=== PATIENT | male | born 1995 | race Caucasian/White ===

== ENCOUNTER 2019-08-27 14:15 | Emergency (ER) | payer OTHER, SELFPAY ==
[2019-08-27 14:25] VITALS: BP 143/83; PULSE 113; RESP 20; TEMP 36.7; O2SAT 97
--- NOTE | 2019-08-27 14:53 | ED.GENADULT ---
HPI - General Adult General Chief complaint: Unspecified Stated complaint: food bolus Time Seen by Provider: 08/27/19 14:29 Source: patient Mode of arrival: ambulatory Limitations: no limitations History of Present Illness HPI narrative: A 24 y/o male pt presents to the ED, with c/o a piece of steak that is stuck in his esophagus x 30 min prior to arrival. He reports chewing the piece of steak up, but is unsure how big the piece was. Pt denies any similar episodes to this in the past. He notes difficulty swallowing his saliva, and CP, but denies SOB, fever, or N/V/D. Pt denies any significant PMHx and notes taking Zyrtec daily for seasonal allergies. complaint: food bolus Onset (ago): minute(s) (30 prior to arrival) Location: neck (throat) Associated symptoms: other (difficulty swallowing saliva) Related Data Home Medications Medication Instructions Recorded Confirmed cetirizine [Zyrtec] 10 mg PO DAILY 08/27/19 Allergies Allergy/AdvReac Type Severity Reaction Status Date / Time No Known Allergies Allergy Unverified 07/10/14 15:04 Review of Systems Review of Systems: All systems reviewed & are unremarkable except as noted in HPI and below Constitutional: Constitutional: Denies fever(s) Cardiovascular: Cardiovascular: Reports chest pain and Denies dyspnea Gastrointestinal: Gastrointestinal: Reports dysphagia (food bolus, unable to swallow saliva), Denies diarrhea, Denies nausea and Denies vomiting PMFSH Past Medical History Medical History (Updated 08/27/19 @ 15:52 by Arash Atkinson MD) Asthma History of gastroesophageal reflux (GERD) Kidney stones Seasonal allergies Surgical History Surgical History (Updated 08/27/19 @ 15:51 by Bebo WoodallJobulous) History of renal stent Hx of adenoidectomy Family History Family History (Updated 06/04/16 @ 13:45 by DOCTOR UNKNOWN) Grandparent Depression Family history of rheumatoid arthritis Family history of allergic disorder Family history of ulcerative colitis Family history of type 2 diabetes mellitus Father Family history of gastrointestinal disorder Mother Family history of hypothyroidism Family history of kidney stones Family history of type 2 diabetes mellitus Social History Social History Smoking status: Never smoker Alcohol intake: never Exam Const: General: healthy appearing, no acute distress and well developed Nutritional Appearance: well nourished Orientation/consciousness: patient oriented x3 (alert) and Other orientation findings (Alert) Limitations: no limitations HENMT: Head: normocephalic and atraumatic Ears: external ears normal General nose exam: No nasal discharge present and no epistaxis Face and sinus: face symmetric Mouth: Yes lip normal, Yes tongue normal and Yes moist mucous membranes Throat: other (No exudate, no erythema) Other: unable to swallow saliva Eyes: Conjunctivae: conjunctivae normal Sclera: sclerae normal EOM: EOMs intact bilaterally Neck: Neck: full ROM, no lymphadenopathy and supple Thyroid: thyroid normal Chest: Chest palpation & inspection: no tenderness Resp: Effort & Inspection: normal respiratory effort Auscultation: clear to auscultation bilaterally, no rales, no rhonchi, no wheezes and other (breath sounds equal) Cardio: Rate: regular rate Rhythm: regular rhythm Heart sounds: no gallops and no murmurs GI: Inspection: non-distended GI Palp: No abdominal tenderness and Yes Soft to palpation Auscultation: other (bowel sounds present) : General: Yes no CVA tenderness Back/Spine/Pelvis: Back: no CVA tenderness Thoracic/Lumbar Spine: thoracic and lumbar spine normal to inspection Skin: General skin exam: normal color and no rashes or lesions noted Neuro: General: patient oriented x3 (alert), moves all extremities and no focal motor deficits Cranial nerves: Yes facial symmetry Speech: normal speech Motor ex
[2019-08-27] MEDS: GLUCAGON FOR INJ 1 MG VIAL IV PUSH (15:35)
[2019-08-27] MEDS: NITROGLYCERIN SL 0.4 MG TABLET SUBLINGUAL (15:35)
[2019-08-27] MEDS: LACTATED RINGERS 1,000 ML 999 ML IV CONT (15:35)
--- NOTE | 2019-08-27 15:52 | PC.NURSE ---
States the food bolus passed. Is able to swallow without difficulty.
== END 2019-08-27 16:15 | disposition home or self-care (01) ==
PROVIDERS: Emergency Provider Emergency Medicine; PCP Family Medicine
DX: T18.128A Food in esophagus causing other injury, initial encounter (principal); J45.909 Unspecified asthma, uncomplicated; K21.9 Gastro-esophageal reflux disease without esophagitis; Z87.440 Personal history of urinary (tract) infections
CPT/HCPCS: 96361; 96374; 99284; A9270; J1610; J7120

== ENCOUNTER 2019-12-15 14:26 | Outpatient (CLI) | payer OTHER, SELFPAY ==
--- NOTE | ~2019-12-15 | XR_ITS ---
XR abdomen/kub 1V DATE: 12/15/2019 16:07 INDICATION: Right flank pain, left flank pain TECHNIQUE: AP projection, 2 views COMPARISON: None FINDINGS: There is an approximately 6 x 10 mm calcified density overlying the expected position of th e proximal right ureter at the L2 level. Consider noncontrast CT abdomen pelvis examination to determ ine if this is a proximal ureteral calcified stone. No other apparent calcifications overlying the urinary tracts. The psoas shadows are intact. No evidence of bowel obstruction. Included skeletal structures are unremarkable. IMPRESSION: 6 x 10 mm calcification overlying proximal right ureter; consider noncontrast CT abdomen pelvis examination Reviewed, dictated and finalized at [facility]. Reviewed, dictated and finalized at location [facility]. IMPRESSION: 6 x 10 mm calcification overlying proximal right ureter; consider n oncontrast CT abdomen pelvis examination
[2019-12-15 16:01] LABS: Basophils Percent Auto 0.4 % (0.2-1.2); Eosinophils Absolute Auto 0.2 K/mm3 (0-0.3); Eosinophils Percent Auto 2.9 % (0-4.4); Hematocrit 51.5 % (42.0-52.0); Immature Granulocyte Absolute 0.02 K/mm3 (0.00-0.031); Immature Granulocyte Percent A 0.3 % (0-0.5); Lymphocytes Absolute Auto 1.31 K/mm3 (0.9-3.2); Lymphocytes Percent Auto 19.2 % (18.3-44.2); Mean Corpuscular Hemoglobin 29.8 pg (26-34); Mean Corpuscular Volume 90.2 fl (80-100); Mean Platelet Volume 12.3 fl (7.4-10.4); Monocytes Absolute Auto 0.4 K/mm3 (0.1-0.6); Monocytes Percent Auto 5.3 % (2.6-8.5); Neutrophils Absolute Auto 4.9 K/mm3 (1.3-6.7); Neutrophils Percent Auto 71.9 % (45.5-73.1); Platelet Count Result 249 k/mm3 (150-375); Red Blood Count 5.71 M/mm3 (4.6-6.20); Red Cell Distribution Width 12.3 % (11.5-14.5); White Blood Count 6.8 K/mm3 (4.5-10.0)
[2019-12-15 16:18] LABS: Alanine Aminotransferase 51 U/L (4-50); Albumin Level 4.8 g/dL (3.5-5.1); Alkaline Phosphatase 41 U/L (38-126); Aspartate Amino Transferase 30 U/L (17-59); Bilirubin,Total 0.5 mg/dL (0.2-1.3); Blood Urea Nitrogen 13 mg/dL (9-20); Calcium 9.7 mg/dL (8.4-10.2); Carbon Dioxide 28 mmol/L (22-30); Chloride 101 mmol/L (98-107); Estimated Glomerular Filt Rate > 60; Glucose 123 mg/dL (75-110); Potassium 4.1 mmol/L (3.4-5.0); Sodium 139 mmol/L (137-145)
[2019-12-15 16:43] LABS: Prostate Specific Antigen 0.4 ng/mL (< OR = 4.0)
[2019-12-15 17:01] LABS: Hepatitis B Surface Antigen Negative (Negative)
[2019-12-15 17:07] LABS: HAV RESULT Negative (Negative); Hepatitis B Core IgM Result Negative (Negative)
[2019-12-15 17:19] LABS: Hepatitis C Virus Antibody Negative (Negative)
[2019-12-18 12:29] LABS: HSV 1 IgM Screen Negative (Negative); HSV 2 IgM Screen Negative (Negative)
[2019-12-18 13:34] LABS: Rapid Plasma Reagin Non-Reactive (NonReactive)
[2019-12-18 15:53] LABS: Testosterone Free 55.7 pg/mL (35.0-155.0); Testosterone Total 387 ng/dL (250-1100)
== END 2019-12-15 14:27 | disposition home or self-care (01) ==
PROVIDERS: PCP Family Medicine; Visit Provider Family Medicine
DX: R10.9 Unspecified abdominal pain (principal); Z72.51 High risk heterosexual behavior; F52.32 Male orgasmic disorder
CPT/HCPCS: 36415; 74018; 80053; 80074; 84153; 84402; 84403; 85025; 86592; 86695; 86696; 87491; 87591

== ENCOUNTER 2019-12-29 13:42 | Outpatient (CLI) | payer OTHER, SELFPAY ==
--- NOTE | ~2019-12-29 | CT_ITS ---
EXAMINATION: CT abdomen pelvis wo con DATE: 12/29/2019 14:00 INDICATION: Right flank pain TECHNIQUE: Computed tomography (CT) of the abdomen and pelvis was performed without intravenous contr ast. The dose-length product was 707.89 mGy-cm. Automated exposure control and iterative reconstructi on technique were employed. COMPARISON: CT dated 07/06/2014 FINDINGS: There are at least 3 small right UPJ stones with moderate hydronephrosis. Largest stone lawrence sures approximately 3 mm. Lung bases unremarkable. No significant pleural or pericardial effusion. Heart size normal. The liver , spleen, pancreas, adrenal glands and left kidney are unremarkable. Nonobstructive bowel gas pattern . No acute osseous abnormality. No free air or free fluid. No lymphadenopathy. No significant vascula r abnormality. No evidence for hernia. IMPRESSION: 1. Small right UPJ stones with moderate hydronephrosis. Reviewed, dictated and finalized at location [facility].
== END 2019-12-29 13:43 | disposition home or self-care (01) ==
LOC: ANHIMG 13:42
PROVIDERS: PCP Family Medicine; Visit Provider Family Medicine
DX: N20.1 Calculus of ureter (principal)
CPT/HCPCS: 74176

== ENCOUNTER 2020-01-02 11:32 | Outpatient (CLI) | payer OTHER, SELFPAY ==
[2020-01-02 12:22] LABS: Alanine Aminotransferase 38 U/L (4-50); Albumin Level 4.6 g/dL (3.5-5.1); Alkaline Phosphatase 42 U/L (38-126); Aspartate Amino Transferase 25 U/L (17-59); Bilirubin,Total 0.5 mg/dL (0.2-1.3); Blood Urea Nitrogen 18 mg/dL (9-20); Calcium 9.2 mg/dL (8.4-10.2); Carbon Dioxide 28 mmol/L (22-30); Chloride 103 mmol/L (98-107); Estimated Glomerular Filt Rate > 60; Glucose 89 mg/dL (75-110); Potassium 4.3 mmol/L (3.4-5.0); Sodium 139 mmol/L (137-145)
[2020-01-02 13:23] LABS: Hemoglobin A1C 5.2 % (<5.7)
== END 2020-01-02 11:33 | disposition home or self-care (01) ==
PROVIDERS: PCP Family Medicine; Visit Provider Family Medicine
DX: R74.8 Abnormal levels of other serum enzymes (principal); R73.9 Hyperglycemia, unspecified
CPT/HCPCS: 36415; 80053; 83036

== ENCOUNTER 2020-01-03 14:43 | Outpatient (CLI) | payer OTHER, SELFPAY ==
--- NOTE | ~2020-01-03 | XR_ITS ---
XR abdomen/kub 1V 01/03/2020 15:04 Indication: Right sided abdomen pain. History of kidney stones. Procedure: KUB Comparison: 12/15/2019 Findings: Persistent right UPJ stones without significant change. Bowel gas pattern nonobstructive. N o significant bone or joint abnormality. Lung bases unremarkable. Impression: 1: Stable appearance to right UPJ stone as compared with prior study. Reviewed, dictated and finalized at location [facility]. Impression: 1: Stable appearance to right UPJ stone as compared with prior study.
== END 2020-01-03 14:44 | disposition home or self-care (01) ==
PROVIDERS: PCP Family Medicine; Visit Provider Urology
DX: N20.0 Calculus of kidney (principal)
CPT/HCPCS: 74018

== ENCOUNTER 2020-01-11 00:44 | Outpatient (CLI) | payer OTHER, SELFPAY ==
[2020-01-11 20:09] LABS: SARS-CoV-2 RNA PCR Negative
== END 2020-01-11 00:45 | disposition home or self-care (01) ==
LOC: ANHCOVIDDT 00:44
PROVIDERS: PCP Family Medicine; Visit Provider Urology
DX: Z01.812 Encounter for preprocedural laboratory examination (principal); Z11.59 Encounter for screening for other viral diseases
CPT/HCPCS: 87635; C9803; U0003

== ENCOUNTER 2020-01-11 07:05 | Outpatient (CLI) | payer OTHER, SELFPAY ==
[2020-01-11 07:53] LABS: Prothrombin Time 12.4 Seconds (11.1-14.7)
[2020-01-11 07:54] LABS: Partial Thromboplastin Time 26.6 SECONDS (22.3-36.8)
== END 2020-01-11 07:06 | disposition home or self-care (01) ==
PROVIDERS: PCP Family Medicine; Visit Provider Urology
DX: N20.0 Calculus of kidney (principal)
CPT/HCPCS: 36415; 85610; 85730

== ENCOUNTER 2020-01-12 02:00 | Day surgery (SDC) | payer OTHER, SELFPAY ==
[2020-01-10 14:37] VITALS: BMI 30.4
--- NOTE | 2020-01-11 17:14 | WPDANESEPP ---
Anes - Eval Pre Procedure Procedure: Operation Date: 01/12/20 07:30 Proposed Procedures p Right Extracorporeal Shock Wave Lithotripsy - Ace Temple MD Date/Time: 01/11/20 17:14 Pre Op Diagnosis: Right UPJ Stone Patient Data Age: 24 Gender: M Height: 5 ft 8 in Weight: 90.72 kg Allergies Allergy/AdvReac Type Severity Reaction Status Date / Time No Known Allergies Allergy Verified 01/10/20 14:38 Home Medications Medication Instructions Recorded Confirmed Type cetirizine [Zyrtec] 10 mg PO DAILY 08/27/19 01/10/20 History tamsulosin 0.4 mg PO DAILY 01/10/20 01/10/20 History Patient hx anesthesia problems: none Family hx anesthesia problems: none PMFSH Past Medical History Medical History Asthma Food impaction of esophagus History of gastroesophageal reflux (GERD) Kidney stones Seasonal allergies Surgical History Surgical History History of renal stent Hx of adenoidectomy Family History Family History Grandparent Depression Family history of rheumatoid arthritis Family history of allergic disorder Family history of ulcerative colitis Family history of type 2 diabetes mellitus Father Family history of gastrointestinal disorder Mother Family history of hypothyroidism Family history of kidney stones Family history of type 2 diabetes mellitus Social History Social History Smoking status: Never smoker Alcohol intake: never Spiritual care concerns: No Exam Day of Procedure 01/11/20 17:14 Patient weight: normal Airway: Mallampati scale Neurological: alert and oriented
[2020-01-12] VITALS (8 sets, daily range): BP systolic 101–135; BP diastolic 64–84; PULSE 55–88; RESP 12–14; TEMP 36.1–36.3; O2SAT 93–100
--- NOTE | ~2020-01-12 | XR_ITS ---
EXAMINATION: XR abdomen/kub 1V DATE: 01/12/2020 06:22 INDICATION: Right ureteral stone. TECHNIQUE: A supine view of the abdomen on 2 radiographs was obtained. COMPARISON: CT abdomen and pelvis 12/29/2019 FINDINGS: There are no dilated loops of bowel. There is a phlebolith right pelvis. There is a [address] one in proximal right ureter. IMPRESSION: 1. 6 mm stone in proximal right ureter. Reviewed, dictated and finalized at location [facility].
--- NOTE | 2020-01-12 06:58 | WPDANESEPPF ---
Anes - Initial Pre Proc Eval Procedure: Operation Date: 01/12/20 07:30 Proposed Procedures p Right Extracorporeal Shock Wave Lithotripsy - Ace Temple MD Date/Time: 01/12/20 06:58 Surgeon: Ace Temple MD Pre Op Diagnosis: Right UPJ Stone Patient Data Age: 24 Gender: M Height: 5 ft 8 in Weight: 90.72 kg Allergies Allergy/AdvReac Type Severity Reaction Status Date / Time No Known Allergies Allergy Verified 01/10/20 14:38 Home Medications Medication Instructions Recorded Confirmed Type cetirizine [Zyrtec] 10 mg PO DAILY 08/27/19 01/10/20 History tamsulosin 0.4 mg PO DAILY 01/10/20 01/10/20 History Patient hx anesthesia problems: none Family hx anesthesia problems: none PMFSH Past Medical History Medical History Asthma Food impaction of esophagus History of gastroesophageal reflux (GERD) Kidney stones Seasonal allergies Surgical History Surgical History History of renal stent Hx of adenoidectomy Family History Family History Grandparent Depression Family history of rheumatoid arthritis Family history of allergic disorder Family history of ulcerative colitis Family history of type 2 diabetes mellitus Father Family history of gastrointestinal disorder Mother Family history of hypothyroidism Family history of kidney stones Family history of type 2 diabetes mellitus Social History Social History Smoking status: Never smoker Alcohol intake: never Spiritual care concerns: No Anes - Eval Final PreProcedure Day of Procedure 01/12/20 06:58 Patient weight: overweight Heart: regular rate and rhythm Lungs: clear to auscultation Airway: Mallampati scale class II Neurological: alert and oriented Last oral intake: >/= 8 hours ASA classification: II Emergent: no Anesthetic plan: proceed Anesthesia type and monitoring: general LMA and standard monitoring Informed Consent: The patient's anesthetic plan and its attendant risks and benefits were discussed with the patient/family/POA. Questions were solicited and answers provided to the satisfaction of the patient/family/POA.
[2020-01-12] MEDS: LACTATED RINGERS 1,000 ML 30 ML IV CONT (07:12)
--- NOTE | 2020-01-12 07:15 | WPDHPUPDATE1 ---
History and Physical Update Update Date/Time: 01/12/20 07:15 History and Physical has been reviewed, including an updated exam of the patient. There are NO changes in the patient's condition. Risks, benefits, and alternatives have been discussed and questions answered. Patient agrees to proceed with procedure.
[2020-01-12] MEDS: ceFAZolin 2 GM/D5W 50 ML 2 GM/50 ML BAG IVPB (07:22)
--- NOTE | 2020-01-12 08:07 | PM.PROC ---
Procedure Note - Detailed Date of procedure: 01/12/20 Pre-op diagnosis: Right UPJ Stone Post-op diagnosis: same Procedure performed: ESWL of right proximal ureteral calculus approximately 9 mm Description of procedure: patient was taken to the operative suite and correctly identified. Once anesthesia was obtained the stone was localized in both planes. Three thousand shocks given the stone. Appears to be fairly hard stone. . Preoperative reading reveals that it appears to be 2-3 stones present in 1 location. Patient is taken recovery room stable condition and given the standard post litho instructions. He develops any problems he will call so we can deal with appropriately. Anesthesia: GLMA Surgeon: Aec Temple MD Drains: No Packing: No Pathology: none sent Complications: No immediate complications Condition: stable Disposition: PACU
== END 2020-01-12 10:00 | disposition home or self-care (01) ==
PROVIDERS: PCP Family Medicine; Visit Provider Urology
PROC: (CPT 50590; principal; 2020-01-12 07:30)
DX: N20.1 Calculus of ureter (principal)
CPT/HCPCS: 50590; 74018; J0690; J1100; J2250; J2405; J2704; J3010; J7120

== ENCOUNTER 2020-01-23 11:15 | Outpatient (CLI) | payer OTHER, SELFPAY ==
--- NOTE | ~2020-01-23 | XR_ITS ---
EXAMINATION: XR abdomen/kub 1V INDICATION: Calculus of kidney TECHNIQUE: Supine views of the abdomen were obtained on 2 radiographs. COMPARISON: 01/12/2020 FINDINGS: The previously described proximal right ureteral stone is no longer identified. No stones o r stone fragments are identified along the expected course of the right ureter or within the urinary bladder. A small stable right pelvic phlebolith is noted. The bowel gas pattern is normal. IMPRESSION: 1. Interval treatment of the previously described proximal right ureteral stone without identifiable urolithiasis. Reviewed, dictated and finalized at location B.
== END 2020-01-23 11:16 | disposition home or self-care (01) ==
LOC: ANHIMG 11:21
PROVIDERS: PCP Family Medicine; Visit Provider Urology
DX: N20.0 Calculus of kidney (principal)
CPT/HCPCS: 74018

== ENCOUNTER 2020-03-06 10:59 | Outpatient (CLI) | payer OTHER, SELFPAY ==
[2020-03-06 11:25] LABS: Add Urine Microscopic? NO; Appearance Urine Clear (Clear); Bilirubin Urine Negative (Negative); Blood Urine Negative (Negative); Color Urine Yellow (Yellow); Glucose Urine UA Negative (Negative); Ketones Urine Negative (Negative); Leukocyte Esterase Ur Negative LEU/UL (Negative); Nitrate Urine Negative (Negative); Protein Urine Negative (Negative); Specific Grav Ur 1.021 (1.001-1.035); Urobilinogen Urine Negative mg/dL (<2.0)
[2020-03-06 11:35] LABS: Albumin Level 4.7 g/dL (3.5-5.1); Anion Gap 8 mmol/L (8-16); Blood Urea Nitrogen 10 mg/dL (9-20); Calcium 9.6 mg/dL (8.4-10.2); Carbon Dioxide 28 mmol/L (22-30); Chloride 103 mmol/L (98-107); Estimated Glomerular Filt Rate > 60; Glucose 99 mg/dL (75-110); Phosphorus 3.3 mg/dL (2.5-4.5); Potassium 4.2 mmol/L (3.4-5.0); Sodium 139 mmol/L (137-145); Uric Acid 6.9 mg/dL (3.5-8.5)
[2020-03-06 12:06] LABS: Parathyroid Intact 39.8 pg/mL (7.5-53.5)
== END 2020-03-06 11:00 | disposition home or self-care (01) ==
PROVIDERS: PCP Family Medicine; Visit Provider Internal Medicine Nephrology
DX: N20.0 Calculus of kidney (principal)
CPT/HCPCS: 36415; 80069; 81003; 83970; 84550

== ENCOUNTER 2020-03-13 01:44 | Outpatient (CLI) | payer OTHER, SELFPAY ==
[2020-03-13 18:39] LABS: SARS-CoV-2 RNA PCR Negative
== END 2020-03-13 01:45 | disposition home or self-care (01) ==
LOC: ANHCOVIDDT 01:45
PROVIDERS: PCP Family Medicine; Visit Provider Internal Medicine Gastroenterology
DX: Z01.812 Encounter for preprocedural laboratory examination (principal); Z20.828 Contact with and (suspected) exposure to other viral communicable diseases
CPT/HCPCS: 87635; C9803; U0003

== ENCOUNTER 2020-03-15 01:01 | Day surgery (SDC) | payer OTHER, SELFPAY ==
[2020-03-07 13:15] VITALS: BMI 30.4
[2020-03-15 12:27] VITALS: BP 134/49; PULSE 70; RESP 16; TEMP 36.7; O2SAT 100; BMI 30.6
[2020-03-15] MEDS: LACTATED RINGERS 1,000 ML 150 ML IV CONT (12:41)
--- NOTE | 2020-03-15 12:48 | P.PNAN_ITS ---
Anes - Initial Pre Proc Eval Procedure: Operation Date: 03/15/20 13:30 Proposed Procedures p Esophagogastroduodenoscopy - Moustapha Jasmine MD Date/Time: 03/15/20 12:48 Surgeon: Moustapha Jasmine MD Pre Op Diagnosis: Dysphagia Patient Data Age: 24 Gender: M Height: 5 ft 8 in Weight: 91.4 kg Last Vital Signs Temp 98.1 F 03/15/20 12:27 Pulse 70 03/15/20 12:27 Resp 16 03/15/20 12:27 BP 134/49 L 03/15/20 12:27 Pulse Ox 100 03/15/20 12:27 Allergies Allergy/AdvReac Type Severity Reaction Status Date / Time No Known Allergies Allergy Verified 03/15/20 12:26 Home Medications Medication Instructions Recorded Confirmed Type Zyrtec 10 mg PO DAILY PRN 08/27/19 03/15/20 History Patient hx anesthesia problems: none Family hx anesthesia problems: none [facility] Social History Social History Smoking status: Never smoker Alcohol intake: current Alcohol use details: OCC. NOT WEEKLY Substance use: never Substance use type: does not use Living arrangements: with family Spiritual care concerns: No Anes - Eval Final PreProcedure Day of Procedure 03/15/20 12:48 Patient weight: overweight Heart: regular rate and rhythm Lungs: clear to auscultation Airway: Mallampati scale class II Neurological: alert and oriented Last oral intake: >/= 8 hours ASA classification: II Emergent: no Anesthetic plan: proceed Anesthesia type and monitoring: general GIVS and standard monitoring Informed Consent: The patient's anesthetic plan and its attendant risks and benefits were discussed with the patient/family/POA. Questions were solicited and answers provided to the satisfaction of the patient/family/POA.
--- NOTE | 2020-03-15 13:24 | PM.HPGS ---
History of Present Illness History of Present Illness Consent: Risks, benefits, and alternatives have been discussed and questions answered. Patient agrees to proceed with procedure. Chief complaint: Dysphagia Narrative: Stephane Cortez is a 24 year old male with dysphagia mostly to solids. Review of Systems Constitutional: Constitutional: Denies headache(s) and Denies weakness Eyes: Eyes: Denies blurry vision ENT: Reports Normal hearing present, Denies headache(s) and Denies neck pain Cardiovascular: Cardiovascular: Denies chest pain and Denies dyspnea Respiratory: Respiratory: Denies dyspnea Gastrointestinal: Gastrointestinal: Reports no additional gastrointestinal complaints Genitourinary: Genitourinary: Denies dysuria Musculoskeletal: Musculoskeletal: Denies neck pain Integumentary/Breasts: Skin/Breast: Denies dry skin Neurologic: Reports Normal hearing present, Denies headache(s) and Denies weakness Psychiatric: Psychiatric: Denies anxiety Endocrine: Endocrine: Denies change in body appearance Hematologic/Lymphatic: Hematologic/Lymphatic: Denies easy bleeding Allergic/Immunologic: Allergic/Immunologic: Denies urticaria PMF Social History Social History Smoking status: Never smoker Alcohol intake: current Alcohol use details: OCC. NOT WEEKLY Substance use: never Substance use type: does not use Living arrangements: with family Spiritual care concerns: No Meds Home Medications and Allergies Home Medications Medication Instructions Recorded Confirmed Type Zyrtec 10 mg PO DAILY PRN 08/27/19 03/15/20 History Allergies Allergy/AdvReac Type Severity Reaction Status Date / Time No Known Allergies Allergy Verified 03/15/20 12:26 Vital Signs Vital Signs - 24 hr 03/15/20 12:27 Temperature 98.1 F Pulse Rate 70 Respiratory Rate 16 Blood Pressure 134/49 L Pulse Oximetry 100 Exam Const: General: comfortable and no acute distress HENMT: General nose exam: Normal nares present Eyes: General: appearance normal, both eyes and all related structures Neck: Neck: no JVD Resp: Auscultation: clear to auscultation bilaterally Cardio: Rate: regular rate Rhythm: regular rhythm GI: Inspection: non-distended GI Palp: Yes Soft to palpation Skin: General skin exam: normal color Neuro: General: gait normal Speech: normal speech Extrem: General: normal to inspection Psych: Mental Status: mental status grossly normal Assessment and Plan Assessment and plan (1) Dysphagia: Code(s): R13.10 - Dysphagia, unspecified Status: Acute Assessment and Plan: egd with bx
[2020-03-15 13:27] VITALS: BP 99/63; PULSE 68; RESP 20; O2SAT 100
[2020-03-15 13:37] VITALS: BP 107/64; PULSE 61; RESP 21; O2SAT 95
[2020-03-15 13:47] VITALS: BP 102/52; PULSE 69; RESP 17; O2SAT 100
== END 2020-03-15 13:56 | disposition home or self-care (01) ==
PROVIDERS: PCP Family Medicine; Visit Provider Internal Medicine Gastroenterology
PROC: 0DJ08ZZ Inspection of Upper Intestinal Tract, Via Natural or Artificial Opening Endoscopic (ICD-10-PCS; CPT 43235; principal; 2020-03-15 13:30)
DX: R13.10 Dysphagia, unspecified (principal); K20.9 Esophagitis, unspecified; K29.50 Unspecified chronic gastritis without bleeding
CPT/HCPCS: 43239; 88305; J7120

== ENCOUNTER 2020-05-15 12:10 | Outpatient (CLI) | payer OTHER, SELFPAY ==
[2020-05-15 12:35] LABS: Add Urine Microscopic? YES; Appearance Urine Clear (Clear); Bacteria Urine Trace /hpf; Bilirubin Urine Negative (Negative); Blood Urine Negative (Negative); Color Urine Yellow (Yellow); Glucose Urine UA Negative (Negative); Ketones Urine Negative (Negative); Leukocyte Esterase Ur Negative LEU/UL (NEGATIVE); Mucus Urine Few /lpf; Nitrate Urine Negative (Negative); Protein Urine 1+ mg/dL (Negative); RBC Urine 0-2 /hpf (0-2); Specific Grav Ur 1.025 (1.001-1.035); WBC Urine 0-3 /hpf (0-3)
[2020-05-15 12:42] LABS: Albumin Level 4.8 g/dL (3.5-5.1); Anion Gap 9 mmol/L (8-16); Blood Urea Nitrogen 12 mg/dL (9-20); Calcium 9.1 mg/dL (8.4-10.2); Carbon Dioxide 29 mmol/L (22-30); Chloride 104 mmol/L (98-107); Estimated Glomerular Filt Rate > 60; Glucose 96 mg/dL (75-110); Phosphorus 3.3 mg/dL (2.5-4.5); Potassium 4.3 mmol/L (3.4-5.0); Sodium 142 mmol/L (137-145); Uric Acid 6.6 mg/dL (3.5-8.5)
== END 2020-05-15 12:11 | disposition home or self-care (01) ==
PROVIDERS: PCP Family Medicine; Visit Provider Internal Medicine Nephrology
DX: N20.0 Calculus of kidney (principal)
CPT/HCPCS: 36415; 80069; 81001; 84550

== ENCOUNTER 2020-08-23 17:31 | Outpatient (CLI) | payer OTHER, SELFPAY | END 2020-08-23 17:32 | disposition home or self-care (01) | LOC: ANHCOVIDVC 17:32 | PROVIDERS: PCP Family Medicine | DX: Z23 Encounter for immunization (principal) | CPT/HCPCS: 0001A; 91300 ==

== ENCOUNTER 2020-09-13 17:13 | Outpatient (CLI) | payer OTHER, SELFPAY | END 2020-09-13 17:14 | disposition home or self-care (01) | LOC: ANHCOVIDVC 17:13 | PROVIDERS: PCP Family Medicine | DX: Z23 Encounter for immunization (principal) | CPT/HCPCS: 0002A; 91300 ==

== ENCOUNTER → 2020-10-08 03:24 | Outpatient (CLI) | payer OTHER, SELFPAY ==
[2020-10-08 20:31] LABS: SARS-CoV-2 RNA PCR Negative
== END ==
PROVIDERS: PCP Family Medicine; Visit Provider Internal Medicine Gastroenterology
DX: Z01.812 Encounter for preprocedural laboratory examination (principal); Z20.822 Contact with and (suspected) exposure to COVID-19
CPT/HCPCS: C9803; U0003; U0005

== ENCOUNTER 2020-10-11 01:54 | Day surgery (SDC) | payer OTHER, SELFPAY ==
[2020-10-02 12:28] VITALS: BMI 31.8
[2020-10-11 09:12] VITALS: BP 125/82; PULSE 79; RESP 16; TEMP 36.8; O2SAT 96; BMI 32.5
[2020-10-11] MEDS: LACTATED RINGERS 1,000 ML 150 ML IV CONT (09:28)
--- NOTE | 2020-10-11 09:59 | WPDANESEPPF ---
Anes - Initial Pre Proc Eval Procedure: Operation Date: 10/11/20 10:15 Proposed Procedures p Esophagogastroduodenoscopy - Moustapha Jasmine MD Date/Time: 10/11/20 09:59 Surgeon: Moustapha Jasmine MD Pre Op Diagnosis: esophogitis Patient Data Age: 25 Gender: M Height: 5 ft 8 in Weight: 97.2 kg Last Vital Signs Temp 98.2 F 10/11/20 09:12 Pulse 79 10/11/20 09:12 Resp 16 10/11/20 09:12 BP 125/82 10/11/20 09:12 Pulse Ox 96 10/11/20 09:12 Allergies Allergy/AdvReac Type Severity Reaction Status Date / Time No Known Allergies Allergy Verified 10/11/20 09:11 Home Medications Medication Instructions Recorded Confirmed Type Zyrtec 10 mg PO DAILY PRN 08/27/19 10/11/20 History omeprazole 20 mg capsule,delayed See Rx Instructions .ROUTE 09/02/20 10/11/20 Rx release .COMPLEX #30 cap Patient hx anesthesia problems: none Family hx anesthesia problems: none PMFSH Past Medical History Medical History Asthma Dysphagia Eosinophilic esophagitis Food impaction of esophagus History of gastroesophageal reflux (GERD) Kidney stones Seasonal allergies Surgical History Surgical History History of renal stent Hx of adenoidectomy Family History Family History Grandparent Depression Family history of rheumatoid arthritis Family history of allergic disorder Family history of ulcerative colitis Family history of type 2 diabetes mellitus Father Family history of gastrointestinal disorder Mother Family history of hypothyroidism Family history of kidney stones Family history of type 2 diabetes mellitus Social History Social History Smoking status: Never smoker Alcohol intake: never Substance use: never Substance use type: does not use Living arrangements: with family Gender identity (if verbalized by the patient): Male Spiritual care concerns: No Anes - Eval Final PreProcedure Day of Procedure 10/11/20 09:59 Patient weight: obese Heart: regular rate and rhythm Lungs: clear to auscultation Airway: Mallampati scale class II Neurological: alert and oriented Last oral intake: >/= 8 hours ASA classification: II Emergent: no Anesthetic plan: proceed Anesthesia type and monitoring: general GIVS and standard monitoring Informed Consent: The patient's anesthetic plan and its attendant risks and benefits were discussed with the patient/family/POA. Questions were solicited and answers provided to the satisfaction of the patient/family/POA.
--- NOTE | 2020-10-11 10:01 | PM.HPGS ---
History of Present Illness History of Present Illness Consent: Risks, benefits, and alternatives have been discussed and questions answered. Patient agrees to proceed with procedure. Chief complaint: esophogitis Narrative: Stephane Cortez is a 25 year old male with EoE, dysphagia now better with ppi. Here to reassess Review of Systems Constitutional: Constitutional: Denies headache(s) and Denies weakness Eyes: Eyes: Denies blurry vision ENT: Reports Normal hearing present, Denies headache(s) and Denies neck pain Cardiovascular: Cardiovascular: Denies chest pain and Denies dyspnea Respiratory: Respiratory: Denies dyspnea Gastrointestinal: Gastrointestinal: Reports no additional gastrointestinal complaints Genitourinary: Genitourinary: Denies dysuria Musculoskeletal: Musculoskeletal: Denies neck pain Integumentary/Breasts: Skin/Breast: Denies dry skin Neurologic: Reports Normal hearing present, Denies headache(s) and Denies weakness Psychiatric: Psychiatric: Denies anxiety Endocrine: Endocrine: Denies change in body appearance Hematologic/Lymphatic: Hematologic/Lymphatic: Denies easy bleeding Allergic/Immunologic: Allergic/Immunologic: Denies urticaria PMFSH Past Medical History Medical History Asthma Dysphagia Eosinophilic esophagitis Food impaction of esophagus History of gastroesophageal reflux (GERD) Kidney stones Seasonal allergies Surgical History Surgical History History of renal stent Hx of adenoidectomy Family History Family History Grandparent Depression Family history of rheumatoid arthritis Family history of allergic disorder Family history of ulcerative colitis Family history of type 2 diabetes mellitus Father Family history of gastrointestinal disorder Mother Family history of hypothyroidism Family history of kidney stones Family history of type 2 diabetes mellitus Social History Social History Smoking status: Never smoker Alcohol intake: never Substance use: never Substance use type: does not use Living arrangements: with family Gender identity (if verbalized by the patient): Male Spiritual care concerns: No Meds Home Medications and Allergies Home Medications Medication Instructions Recorded Confirmed Type Zyrtec 10 mg PO DAILY PRN 08/27/19 10/11/20 History omeprazole 20 mg capsule,delayed See Rx Instructions .ROUTE 09/02/20 10/11/20 Rx release .COMPLEX #30 cap Allergies Allergy/AdvReac Type Severity Reaction Status Date / Time No Known Allergies Allergy Verified 10/11/20 09:11 Vital Signs Vital Signs - 24 hr 10/11/20 09:12 Temperature 98.2 F Pulse Rate 79 Respiratory Rate 16 Blood Pressure 125/82 Pulse Oximetry 96 Exam Const: General: comfortable and no acute distress HENMT: General nose exam: Normal nares present Eyes: General: appearance normal, both eyes and all related structures Neck: Neck: no JVD Resp: Auscultation: clear to auscultation bilaterally Cardio: Rate: regular rate Rhythm: regular rhythm GI: Inspection: non-distended GI Palp: Yes Soft to palpation Skin: General skin exam: normal color Neuro: General: gait normal Speech: normal speech Extrem: General: normal to inspection Psych: Mental Status: mental status grossly normal Assessment and Plan Assessment and plan (1) Eosinophilic esophagitis: Code(s): K20.0 - Eosinophilic esophagitis Status: Acute Assessment and Plan: egd with bx to reassess, already on ppi
[2020-10-11 10:20] VITALS: BP 107/70; PULSE 85; RESP 16; O2SAT 97
[2020-10-11 10:30] VITALS: BP 105/69; PULSE 81; RESP 16; O2SAT 99
[2020-10-11 10:40] VITALS: BP 115/57; PULSE 77; RESP 16; O2SAT 99
== END 2020-10-11 11:06 | disposition home or self-care (01) ==
PROVIDERS: PCP Family Medicine; Visit Provider Internal Medicine Gastroenterology
PROC: 0DJ08ZZ Inspection of Upper Intestinal Tract, Via Natural or Artificial Opening Endoscopic (ICD-10-PCS; CPT 43235; principal; 2020-10-11 10:15)
DX: K20.0 Eosinophilic esophagitis (principal); K21.9 Gastro-esophageal reflux disease without esophagitis; J45.909 Unspecified asthma, uncomplicated; R13.10 Dysphagia, unspecified
CPT/HCPCS: 43239; 88305; J2704; J7120

== ENCOUNTER 2020-11-29 11:55 | Outpatient (CLI) | payer OTHER, SELFPAY ==
[2020-11-29 12:38] LABS: Add Urine Microscopic? YES; Appearance Urine Clear (Clear); Bacteria Urine Trace /hpf; Bilirubin Urine Negative (Negative); Blood Urine Negative (Negative); Color Urine Yellow (Yellow); Glucose Urine UA Negative (Negative); Ketones Urine Negative (Negative); Leukocyte Esterase Ur Negative LEU/UL (Negative); Mucus Urine Rare /lpf; Nitrate Urine Negative (Negative); Protein Urine 2+ mg/dL (Negative); RBC Urine 0-2 /hpf (0-2); Specific Grav Ur 1.026 (1.001-1.035); WBC Urine 0-3 /hpf
[2020-11-29 12:44] LABS: Albumin Level 4.8 g/dL (3.5-5.1); Anion Gap 8 mmol/L (8-16); Blood Urea Nitrogen 15 mg/dL (9-20); Calcium 9.7 mg/dL (8.4-10.2); Carbon Dioxide 31 mmol/L (22-30); Chloride 104 mmol/L (98-107); Estimated Glomerular Filt Rate > 60; Glucose 90 mg/dL (75-110); Phosphorus 2.8 mg/dL (2.5-4.5); Potassium 4.6 mmol/L (3.4-5.0); Sodium 143 mmol/L (137-145); Uric Acid 7.5 mg/dL (3.5-8.5)
[2020-11-29 14:33] LABS: Creatinine Urine 243.9 mg/dL; Total Protein Urine Random 8 mg/dL; Ur Ttl Prot Creatinine Ratio 0.03 mg/mg (0-0.20)
== END 2020-11-29 11:56 | disposition home or self-care (01) ==
PROVIDERS: PCP Family Medicine; Visit Provider Internal Medicine Nephrology
DX: N20.0 Calculus of kidney (principal)
CPT/HCPCS: 36415; 80069; 81001; 82570; 84156; 84550

== ENCOUNTER 2021-08-15 14:02 | Outpatient (CLI) | payer OTHER, SELFPAY ==
--- NOTE | ~2021-08-15 | XR_ITS ---
XR abdomen/kub 1V 08/15/2021 14:36 INDICATION: Renal stone TECHNIQUE: KUB COMPARISON: 12/15/2019 FINDINGS: Bowel gas pattern is normal. There is no evidence of free air, mass, organomegaly, ascites or obstruction. No abnormal calculi are seen. The bones appear intact. IMPRESSION: 1: No acute abdominal abnormality identified. Reviewed, dictated and finalized at location B. [employer]
[2021-08-15 15:03] LABS: Add Urine Microscopic? YES; Appearance Urine Clear (Clear); Bilirubin Urine Negative (Negative); Blood Urine Negative (Negative); Color Urine Yellow (Yellow); Glucose Urine UA Negative (Negative); Ketones Urine Negative (Negative); Leukocyte Esterase Ur Negative LEU/UL (NEGATIVE); Mucus Urine Rare /lpf; Nitrate Urine Negative (Negative); Protein Urine Negative (Negative); RBC Urine 0-2 /hpf (0-2); WBC Urine 0-3 /hpf (0-3)
[2021-08-15 15:56] LABS: Albumin Level 4.7 g/dL (3.5-5.1); Anion Gap 8 mmol/L (8-16); Blood Urea Nitrogen 10 mg/dL (9-20); Calcium 9.6 mg/dL (8.4-10.2); Carbon Dioxide 27 mmol/L (22-30); Chloride 103 mmol/L (98-107); Estimated Glomerular Filt Rate > 60; Glucose 106 mg/dL (65-110); Phosphorus 3.4 mg/dL (2.5-4.5); Potassium 4.5 mmol/L (3.4-5.0); Sodium 138 mmol/L (137-145); Uric Acid 7.4 mg/dL (3.5-8.5)
== END 2021-08-15 14:03 | disposition home or self-care (01) ==
PROVIDERS: PCP Family Medicine; Visit Provider Internal Medicine Nephrology
DX: N20.0 Calculus of kidney (principal)
CPT/HCPCS: 36415; 74018; 80069; 81001; 84550

== ENCOUNTER 2022-03-10 10:19 | Outpatient (CLI) | payer OTHER, SELFPAY ==
[2022-03-10 11:05] LABS: Mucus Urine Rare /lpf; Squamous Epithelial Cell Urine Rare /hpf (Few); WBC Urine 0-3 /hpf (0-3)
[2022-03-10 11:11] LABS: Albumin Level 4.4 g/dL (3.5-5.1); Anion Gap 12 mmol/L (8-16); Blood Urea Nitrogen 12 mg/dL (9-20); Calcium 9.1 mg/dL (8.4-10.2); Carbon Dioxide 25 mmol/L (22-30); Chloride 103 mmol/L (98-107); Estimated Glomerular Filt Rate > 60; Glucose 104 mg/dL (65-110); Potassium 3.9 mmol/L (3.4-5.0); Sodium 140 mmol/L (137-145); Uric Acid 7.7 mg/dL (3.5-8.5)
[2022-03-10 11:13] LABS: Appearance Urine Clear (Clear); Bilirubin Urine 1+ (Negative); Color Urine Yellow (Yellow); Glucose Urine UA Negative (Negative); Ketones Urine Negative (Negative); Leukocyte Esterase Ur Negative LEU/UL (NEGATIVE); Nitrate Urine Negative (Negative); Protein Urine Negative (Negative); Specific Grav Ur >= 1.030 (1.001-1.035); Urobilinogen Urine 0.2 mg/dL (<2.0)
[2022-03-10 11:19] LABS: Add Urine Microscopic? YES; Blood Urine Trace-Intact (Negative)
== END 2022-03-10 10:20 | disposition home or self-care (01) ==
LOC: ANHLAB 10:22
PROVIDERS: PCP Family Medicine; Visit Provider Internal Medicine Nephrology
DX: N20.0 Calculus of kidney (principal)
CPT/HCPCS: 36415; 80069; 81001; 84550

== ENCOUNTER 2022-10-21 12:35 | Outpatient (CLI) | payer OTHER, SELFPAY ==
--- NOTE | ~2022-10-21 | XR_ITS ---
EXAMINATION: XR abdomen/kub 1V DATE: 10/21/2022 12:59 INDICATION: Calculus of kidney. TECHNIQUE: A supine view of the abdomen on 2 radiographs was obtained. COMPARISON: CT abdomen and pelvis 12/29/2019 FINDINGS: There are no dilated loops of bowel. There is no visible urolithiasis. There is a phlebolit h in right pelvis. IMPRESSION: 1. No visible urolithiasis. Reviewed, dictated and finalized at location A. IMPRESSION: 1. No visible urolithiasis.
[2022-10-21 13:04] LABS: Appearance Urine Cloudy (Clear); Bacteria Urine 4+ /hpf; Bilirubin Urine Negative (Negative); Blood Urine Negative (Negative); Color Urine Yellow (Yellow); Glucose Urine UA Negative (Negative); Ketones Urine Negative (Negative); Leukocyte Esterase Ur 3+ LEU/UL (NEGATIVE); Nitrate Urine Positive (Negative); Non Pathogenic Casts 0-2; Protein Urine 1+ mg/dL (Negative); RBC Urine 0-2 /hpf (0-2); Specific Grav Ur 1.023 (1.001-1.035); Squamous Epithelial Cell Urine None seen /hpf (Few); WBC Urine >100 /hpf (0-3); pH Urine 6.5 (5.0-9.0)
[2022-10-21 13:06] LABS: Add Urine Microscopic? YES
[2022-10-21 13:20] LABS: Albumin Level 4.2 g/dL (3.5-5.1); Anion Gap 6 mmol/L (8-16); Blood Urea Nitrogen 11 mg/dL (9-20); Calcium 8.9 mg/dL (8.4-10.2); Carbon Dioxide 33 mmol/L (22-30); Chloride 102 mmol/L (98-107); Estimated Glomerular Filt Rate > 60; Glucose 106 mg/dL (65-110); Potassium 4.4 mmol/L (3.4-5.0); Sodium 141 mmol/L (137-145); Uric Acid 7.2 mg/dL (3.5-8.5)
== END 2022-10-21 12:36 | disposition home or self-care (01) ==
PROVIDERS: Visit Provider Internal Medicine Nephrology
DX: N20.0 Calculus of kidney (principal)
CPT/HCPCS: 36415; 74018; 80069; 81001; 84550

== ENCOUNTER → 2023-09-29 11:10 | Outpatient (CLI) | payer OTHER, SELFPAY ==
--- NOTE | ~2023-09-29 | XR_ITS ---
Supine and upright views of the abdomen Clinical history: Renal stone Findings: Bowel gas pattern is nonspecific. No evidence for obstruction or free air. No abnormal mass lesion or calcification is seen. Osseous structures are intact. Impression: No significant abnormality is seen. Reviewed, dictated and finalized at [facility]. Impression: No significant abnormality is seen.
== END ==
PROVIDERS: PCP Internal Medicine Nephrology; Visit Provider Internal Medicine Nephrology
DX: N20.0 Calculus of kidney (principal)
CPT/HCPCS: 74018

== ENCOUNTER → 2024-09-29 10:11 | Outpatient (CLI) | payer OTHER, SELFPAY ==
--- NOTE | ~2024-09-29 | XR_ITS ---
XR abdomen/kub 1V 09/29/2024 10:45 Indication: Renal stone Procedure: KUB Comparison: Comparison to multiple prior studies sequentially, with oldest reviewed study dated 09/2019. Findings: Bowel gas pattern is nonobstructive. There is a stone in the lower pole of the left kidney. No acute osseous abnormality. Moderate colonic fecal loading. Impression: 1: Left nephrolithiasis. Reviewed, dictated and finalized at location A. Impression: 1: Left nephrolithiasis.
--- OUTSIDE RECORDS SUMMARY | 2024-09-29 10:47 | XMS_ITS | Clinical Summary ---
Author Organization [facility] Address [address], [place] [address] Phone Care Team Providers Care Lumber Puller Name Role Phone Maida Fuentes MD Primary Care Provider [phone] Allergies No known active allergies Medications omeprazole (PriLOSEC) [address] capsule TK ONE C PO BID 03/15/2020 Active cetirizine (ZyrTEC) 10 MG chewable tablet Chew 10 mg 1 (one) time each day Active Active Problems Problem Noted Date Diagnosed Date Calculus of kidney 02/27/2020 Childhood obesity 01/03/2013 Immunizations Immunization Administration Dates Next Due DTaP 12/13/2001,10/25/1997 DTaP, Unspecified 1996,1996,06/08/19 96 HPV, Quadrivalent 07/07/2013,03/06/2013,01/04/20 13 Hep A, 2 Dose 01/09/2011,01/21/2007 Hep B, Adolescent or Pediatric 1996,1995,1996 Hib (PRP-D) 10/25/1997,1996,1996 ,1996 IPV 12/13/2001 Influenza LAIV (Nasal) 03/21/2020 Influenza TIV (IM) 04/04/2021 Influenza, Quadrivalent 03/06/2013 Influenza, Unspecified 04/01/2012,2009,03/30/2009,04/12/2008,1 ,03/29/2006,03/26/2005,03/25/2004 MMR 12/13/2001,04/17/1997 Meningococcal MCV4P 02/06/2014,01/09/2011 OPV 1996,1996,1996 Tdap 01/21/2007 Family History Medical History Relation Comments Kidney stone Father Kidney stone Mother Relation Status Comments Father Mother Social History Tobacco Use Types Packs/Day Years Used Date Smoking Tobacco: Never Smokeless Tobacco: Never Alcohol Use Standard Drinks/Week Comments Yes 0 (1 standard drink = 0.6 oz pur e alcohol) rare Sex and Gender Information Value Date Recorded Sex Assigned at Not on file Legal Sex Male 11:58 AM MDT Gender Identity Not on file Sexual Orientation Not on file Last Filed Vital Signs Vital Sign Reading Time Taken Comments Blood Pressure 118/74 03/12/2022 8:35 AM CDT Pulse 84 03/12/2022 8:35 AM CDT Temperature 36.8 C (98.3 F) 03/12/2022 8:35 AM CDT Respiratory Rate - - Oxygen Saturation - - Inhaled Oxygen Concentration - - Weight 97.1 kg (214 lb) 03/12/2022 8:35 AM CDT Height 172.7 cm (5' 8 ) 03/12/2022 8:35 AM CDT Body Mass Index 32.54 03/12/2022 8:35 AM CDT Plan of Treatment Health Maintenance Due Date Last Done Comments Influenza Vaccine (Season Ended) 2025 04/04/2021, 03/21/2020, 04/01/2012, Additional history exists Insurance Care Teams Lumber Puller Relationship Specialty Start Date End Date Maida Fuentes MD [address] [place] [phone] PCP - General Family Medicine 01/25/20
--- OUTSIDE RECORDS SUMMARY | 2024-09-29 10:47 | XMS_ITS | Continuity of Care Document ---
Author Organization [facility] Address [address] [facility] [facility] [address] [place] [address] Phone Care Team Providers Care Epic Specialist Name Role Phone Audrey Gracia Unavailable Unavailable Advance Directives Directive Yes / No Effective Date File Name No Information Encounters Encounter Description Practice Location Reason(s) For Visit Diagnoses Date Provider Providers Copied on Encounter [facility], [id number] [place] [address] [address], [place], [place], [id number], tel:[phone] [facility] No Information [address] , [address], [place], [address], [place]. tel:[phone] Family History Family Member Type Diagnosis Age At Onset No Information Payers Payer name Insurance type Covered republican ID Authoriza tion(s) No Information Social History Type Description Quantity Date Captured Comments Sex Male Smoking Status No Information Chief Complaint And Reason For Visit No Information Reason For Referral Reason For Referral No Information History Of Present Illness Encounter Date Complaint History Of Prese nt Illness No Information Functional Status Date Functional Assessmen t No Information Instructions Date Instruction Additional Infor mation No Information Assessments Type Assessment Date No Information Patient Care Teams Name Effective Dates (start - stop) Status Members No Information
--- OUTSIDE RECORDS SUMMARY | 2024-09-29 10:47 | XMS_ITS | Clinical Summary ---
Author Organization [facility] Address [address] [place] [address] Care Team Providers Care Facing Baster Jumpbasting Name Role Phone Unavailable Primary Care Provider Unavailabl e Source Comments [facility],non-owned Affiliates and Associated Physician Practices is amultiple site organization consisting of ambulatory clinics and hospital sitesin [place], [place], [place] and [place]. This disclosure is being madepursuant to the Care Everywhere program and may not contain all information available regarding this patient. Last updated 18.[facility] Allergies No known active allergies Medications * Be aware that medications may not be up to date on this document. Alwaysverify current medications with the patient. Medication Sig Dispensed Refills Start Date End Date Status cetirizine (ZYRTEC) 10 MG tablet Take 10 mg by mouth daily. Active Active Problems Problem Noted Date Diagnosed Date BMI (body mass index), pediatric, 95-99% for age 0701/03/2013 Immunizations Name Administration Dates Next Due DPT 1996,1996,1996 DTaP VACCINE IM (6wk-6yrs) 12/13/2001,10/25/1997 HEP A PEDS 2 DOSE 01/09/2011,01/21/2007 HEP B VACCINE, PED/ADOL 1996,1996, HIB BOOSTER 10/25/1997, 7,1996,06/08 Human Papilloma Virus Melisa valent Vaccine 07/07/2013,03/06/2013,01/03/2013 INFLUENZA VACCINE 04/01/2012, 0,03/30/2009,04/12,04/18/2007,03/29/2006,03/26/2005 ,03/25/2004 NEMO VACCINE QUAD LAIV4 PF NASAL 03/06/2013 MENINGOCOCCAL ACWY (MCV4P) VAC IM 02/06/2014, MMR 12/13/2001,04/17/1997 POLIO IPV 12/13/2001 POLIO OPV 1996,1996,1996 TDAP (7yrs+) 01/21/2007 Social History Tobacco Use Types Packs/Day Years Used Date Smoking Tobacco: Never Alcohol Use Standard Drinks/Week Comments No 0 (1 standard drink = 0.6 oz pur e alcohol) Sex and Gender Information Value Date Recorded Sex Assigned at Not on file Gender Identity Not on file Sexual Orientation Not on file Last Filed Vital Signs Vital Sign Reading Time Taken Comments Blood Pressure 122/72 02/06/2014 1:35 PM CDT Pulse 72 02/06/2014 1:04 PM CDT Temperature 36.8 C (98.3 F) 03/07/2014 11:38 AM CDT Respiratory Rate 16 01/09/2011 11:24 AM CDT Oxygen Saturation - - Inhaled Oxygen Concentration - - Weight 86.6 kg (191 lb) 03/07/2014 11:38 AM CDT Height 172.1 cm (5' 7.75 ) 02/06/2014 1:04 PM CD T Body Mass Index - - Plan of Treatment Health Maintenance Due Date Last Done Comments HIV SCREENING 2011 HEPATITIS C SCREENING 04/04/2014 DTAP/TDAP/TD VACCINES (7 - Td or Tdap) 01/21/2017 01/21/2007, 12/13/2001, 10/25/1997, Additional history exists COVID-19 VACCINE ( - season) 2024 DEPRESSION SCREENING 06/21/2024 INFLUENZA VACCINE (Season Ended) 2025 03/06/2013, 04/01/2012, 04/10/2010, Additional history exists ZOSTER VACCINE (1 of 2) 2046 HEPATITIS B VACCINE Completed 1996, 1996, 1996 HIB VACCINE Completed 10/25/1997, 11/20, 1996, Additional history exists HPV VACCINE Completed 07/07/2013, 02/19, 01/03/2013 MENINGOCOCCAL GROUPS A/C/Y/W VACCINE Completed 02/06/2014, 01/09/2011 MENINGOCOCCAL (Group B) VACCINE SHARED DECISION-MAKING Aged Out No longer eligible based on patient's age to complete this topic PNEUMOCOCCAL VACCINE Aged Out No long er eligible based on patient's age to complete this topic
== END ==
PROVIDERS: PCP Internal Medicine Nephrology; Visit Provider Internal Medicine Nephrology
DX: N20.0 Calculus of kidney (principal)
CPT/HCPCS: 74018